=== PATIENT | female | born 1955 | race Caucasian/White ===

== ENCOUNTER 2023-01-04 10:49 | Emergency (ER) | payer MEDICARE, OTHER ==
[~2023-01-04] VITALS: Ht 162.6 cm; Wt 61.4 kg
[2023-01-04] MEDS ORDERED: ALBUTEROL SULFATE HFA 90 MCG/PUFF 8 GM INHALER IH ONE (13:00)
[2023-01-04 13:03] LABS: COVID AG,FIA SOURCE NASAL SWAB
[2023-01-04] MEDS ORDERED: CefTRIAXone 1 GM/DEXTROSE 50 ML IV ONE (13:15)
[2023-01-04] MEDS ORDERED: AZITHROMYCIN 500 MG/NS 250 ML IV ONE (13:15)
[2023-01-04] MEDS ORDERED: KETOROLAC TROMETHAMINE 30 MG/ML VIAL IVP ONE (13:30)
[2023-01-04 13:34] LABS: INFLUENZA TYPE A NEGATIVE FOR TYPE A (NEGATIVE); INFLUENZA TYPE B NEGATIVE FOR TYPE B (NEGATIVE)
[2023-01-04 13:37] LABS: BASOPHILS % (AUTO) 0.7 % (0.0-2.0); EOSINOPHILS % (AUTO) 0.1 % (1.0-6.0); HEMATOCRIT 44.6 % (36-46); HEMOGLOBIN 14.8 g/dL (12.0-16.0); LYMPHOCYTES # (AUTO) 1.1 K/uL (1.0-4.8); LYMPHOCYTES % (AUTO) 17.3 % (22.0-44.0); MEAN CORPUSCULAR HGB CONC 33.1 G/dL (31.0-37.0); MEAN CORPUSCULAR VOLUME 94 fL (80-100); MONOCYTES # (AUTO) 0.6 K/uL (0.1-1.0); MONOCYTES % (AUTO) 9.5 % (2.0-9.0); NEUTROPHILS # (AUTO) 4.6 K/uL (1.8-7.7); NEUTROPHILS % (AUTO) 72.4 % (40.0-70.0); PLATELET COUNT (AUTO) 135 K/uL (150-450); RED BLOOD CELL COUNT(AUTO) 4.77 MIL/uL (4.00-5.20); RED CELL DISTRIBUTION WIDTH 13.9 % (11.5-14.5)
[2023-01-04 13:41] LABS: ANION GAP 8 mmol/L (8-16); CALCIUM, TOTAL 9.2 mg/dL (8.8-10.5); CARBON DIOXIDE 29 mmol/L (22-29); CHLORIDE 100 mmol/L (98-107); CREATININE 0.63 mg/dL (0.60-1.30); GLOMERULAR FILTR. RATE CALC > 60 mL/min (>60); GLUCOSE,RANDOM 111 mg/dL (70-110); POTASSIUM 3.8 mmol/L (3.5-5.1); SODIUM SERUM 137 mmol/L (136-145); UREA NITROGEN, BLOOD 11 mg/dL (7-18)
[2023-01-04 13:46] LABS: ALANINE AMINOTRANSFERASE 19 U/L (12-78); ALBUMIN 3.8 g/dL (3.4-5.0); ALKALINE PHOSPHATASE 98 U/L (46-116); ASPARTATE AMINOTRANSFERASE 35 U/L (15-37); BILIRUBIN,TOTAL 0.4 mg/dL (0.1-1.0); TOTAL PROTEIN, SERUM 7.5 g/dL (6.4-8.2)
[2023-01-04 13:49] LABS: B-TYPE NATRIURETIC PEPTIDE 7 pg/mL (0-100)
[2023-01-04] MEDS ORDERED: ALBUTEROL SULFATE 2.5 MG/0.5 ML NEB SOLUTION NEB ONE (14:00)
[2023-01-04] MEDS ORDERED: IPRATROPIUM BROMIDE 0.5 MG/2.5 ML NEB SOLUTION NEB ONE (14:00)
[2023-01-04] MEDS ORDERED: AZIT250T9 PO (15:41)
[2023-01-04 15:49] VITALS: BP 126/68
== END 2023-01-04 16:03 | disposition home or self-care (01) ==
LOC: EMS 10:52
DX: J18.9 Pneumonia, unspecified organism (principal); J45.909 Unspecified asthma, uncomplicated; F17.210 Nicotine dependence, cigarettes, uncomplicated; E11.9 Type 2 diabetes mellitus without complications; I10 Essential (primary) hypertension; Z20.822 Contact with and (suspected) exposure to COVID-19
CPT/HCPCS: 99285; 96365; 71046; 96375; 87426; 99406; 80053; 83880; 84484; 85025; 87040; 87804; 94644; 93005; 96368; 36415; J0456; J0696; J1885; J3535; 94640; J7613